=== PATIENT | female | born 1975 | race Hispanic/Latino ===

== ENCOUNTER 2021-06-10 22:46 | Emergency (ER) | payer OTHER ==
[~2021-06-10] VITALS: Ht 160 cm; Wt 86.6 kg
[2021-06-10 23:46] LABS: BASOPHILS % (AUTO) 0.2 % (0.0-5.0); EOSINOPHILS % (AUTO) 1.1 % (0.0-8.0); HEMATOCRIT 40.7 % (36-48); LYMPHOCYTES % (AUTO) 9.5 % (21.0-51.0); MEAN CORPUSCULAR HEMOGLOBIN 27.1 pg (27.0-33.0); MEAN CORPUSCULAR HGB CONC 32.2 g/dL (32.0-36.0); MEAN CORPUSCULAR VOLUME 84.3 fL (79-99); NEUTROPHILS % (AUTO) 84.8 % (40.0-77.0); PLATELET COUNT (AUTO) 210 K/uL (130-400); RED BLOOD CELL COUNT(AUTO) 4.83 MIL/uL (4.00-5.50); RED CELL DISTRIBUTION WIDTH 12.8 % (11.0-15.5); WHITE BLOOD COUNT (AUTO) 13.8 K/uL (4.8-10.8)
[2021-06-10 23:48] LABS: APPEARANCE,URINE Turbid (CLEAR); BILIRUBIN,URINE Negative (NEGATIVE); COLOR,URINE Yellow (YELLOW); GLUCOSE, URINE (UA) Negative (NEGATIVE); KETONES,URINE Negative (NEGATIVE); LEUKOCYTE ESTERASE ,URINE Negative (NEGATIVE); NITRATE,URINE Negative (NEGATIVE); OCCULT BLOOD,URINE Negative (NEGATIVE); PROTEIN,URINE Negative (NEGATIVE)
[2021-06-11] MEDS ORDERED: ONDANSETRON 4MG INJ IVP ONE
[2021-06-11] MEDS ORDERED: METOCLOPRAMIDE 10 MG/2 ML VIAL IVP ONE
[2021-06-11] MEDS ORDERED: PANTOPRAZOLE 40 MG/VIAL IVP ONE
[2021-06-11] MEDS ORDERED: FAMOTIDINE 20MG VIAL IV ONE
[2021-06-11] MEDS ORDERED: 0.9%NACL 1000ML 1,000 ML IV ONE
[2021-06-11 00:04] LABS: CREATININE 0.6 mg/dL (0.5-1.5); POTASSIUM 4.1 mmol/L (3.5-5.1)
[2021-06-11 00:08] LABS: ALBUMIN 3.6 g/dL (3.5-5.0); BILIRUBIN,TOTAL 0.3 mg/dL (0.2-1.0); TOTAL PROTEIN, SERUM 7.5 g/dL (6.0-8.3)
[2021-06-11 00:15] LABS: AMORPHOUS SEDIMENT,UR Moderate /LPF (None Seen); BACTERIA,URINE None Seen /HPF (None Seen); RBC,URINE None Seen /HPF (0-1); SQUAMOUS EPITHELIAL CELL,UR Few /HPF (0-2); WBC,URINE 0-1 /HPF (0-1)
[2021-06-11] MEDS ORDERED: ONDA4TAB10 PO (01:29)
[2021-06-11] MEDS ORDERED: PANT40TA PO (01:29)
[2021-06-11] MEDS ORDERED: METO-296 PO (01:29)
[2021-06-11] MEDS ORDERED: DICY20TA2 PO (01:29)
[2021-06-11 01:49] VITALS: BP 118/68
== END 2021-06-11 01:50 | disposition home or self-care (01) ==
LOC: EDH 22:46
DX: K29.70 Gastritis, unspecified, without bleeding (principal); E86.9 Volume depletion, unspecified; Z79.899 Other long term (current) drug therapy; Z90.49 Acquired absence of other specified parts of digestive tract
CPT/HCPCS: 36415; 80053; 81001; 83690; 85025; 96361; 96374; 96375; 99284; C9113; J2405; J2765; J3490